=== PATIENT | female | born 1955 | race Hispanic/Latino ===

== ENCOUNTER 2020-07-13 08:57 | Outpatient (CLI) | payer MEDICARE, OTHER ==
--- NOTE | 2020-07-13 12:04 | BD ---
DEXA BONE DENSITY STUDY: Date: 07/13/2020 HISTORY: Postmenopausal. FINDINGS: Right Forearm: BMD (g/cm2) / 0.519 T-Score: -2.9 Total 0.460 T-Score: -2.2 Right Femoral Neck: 0.483 T-Score: -3.3 Total Femur: 0.598 T-Score: -2.8 IMPRESSION: 1. Osteoporosis of the right forearm and right hip. 2. The 10 year fracture risk for a major osteoporotic fracture is 3% and for a hip fracture is 13%. These fracture probabilities are calculated for an untreated patient. POS: OFF
== END 2020-07-13 08:58 | disposition home or self-care (01) ==
LOC: BICMAMMO 08:57
PROVIDERS: ATTEND Internal Medicine Rheumatology
DX: M81.8 Other osteoporosis without current pathological fracture (principal); M81.0 Age-related osteoporosis without current pathological fracture
CPT/HCPCS: 77080

== ENCOUNTER 2021-11-28 09:04 | Outpatient (CLI) | payer MEDICARE, OTHER | END 2021-11-28 09:05 | disposition home or self-care (01) | LOC: RAD 09:04 | PROVIDERS: ATTEND Internal Medicine Critical Care Medicine | DX: R06.00 Dyspnea, unspecified (principal); J84.10 Pulmonary fibrosis, unspecified | CPT/HCPCS: 71046 ==